=== PATIENT | male | born 1945 | race Caucasian/White ===

== ENCOUNTER → 2021-04-09 | Outpatient (CLI) | payer MEDICARE | LOC: COL.RAD 09:45 | DX: Z13.6 Encounter for screening for cardiovascular disorders (principal); Z82.49 Family history of ischemic heart disease and other diseases of the circulatory system ==

== ENCOUNTER 2021-06-25 09:24 | Day surgery (SDC) | payer MEDICARE ==
[~2021-06-25] VITALS: Ht 170.2 cm; Wt 88.8 kg
[2021-06-25 11:15] VITALS: BP 92/69; PULSE 97; TEMP 98.6
[2021-06-25] MEDS ORDERED: VITAMIN D3400 I1 PO (12:33)
[2021-06-25] MEDS ORDERED: VITAMIN D 400400 IU PO (12:33)
[2021-06-25] MEDS ORDERED: NATURE'S BLEND600 M2 PO (12:34)
[2021-06-25] MEDS ORDERED: FLOMAX 0.40.4 MG/CAP PO (12:34)
[2021-06-25] MEDS ORDERED: CHROMIUM PICOLI1 TA8 PO (12:41)
[2021-06-25] MEDS ORDERED: CINNAMON BARK PO (12:41)
[2021-06-25] MEDS ORDERED: FERROUS SU325 MG/TAB PO (12:42)
[2021-06-25] MEDS ORDERED: TYLENOL 8 HR PO (12:43)
[2021-06-25] MEDS ORDERED: VALTREX1 GM PO (12:44)
[2021-06-25] MEDS ORDERED: MAGNESIUM CITR100 MG PO (12:44)
[2021-06-25] MEDS ORDERED: ASPIRIN 81M81 MG/TA2 PO (12:44)
[2021-06-25] MEDS ORDERED: PRINIVIL20 MG PO (12:45)
[2021-06-25] MEDS ORDERED: LIPITOR20 MG PO (12:45)
[2021-06-25] MEDS ORDERED: SYNTHROID0.175 MG PO (12:46)
[2021-06-25] MEDS ORDERED: ACTOS 15MG TAB15 MG PO (12:47)
[2021-06-25] MEDS ORDERED: GLUCOTROL10 MG PO (12:47)
[2021-06-25] MEDS ORDERED: GLUCOPHAGE XR750 MG PO (12:47)
[2021-06-25 12:50] VITALS: BP 90/62; PULSE 92; TEMP 97.7
[2021-06-25 13:00] VITALS: BP 103/71; PULSE 96
[2021-06-25 13:15] VITALS: BP 88/56; PULSE 83
--- NOTE | 2021-06-25 14:36 | NUR ---
1250 Pt returns from endo procedure via cart and RN assist to [facility] 5. Pt ambulates from cart to recliner with RN assist. Monitors on and alarms set. Call light within reach. Report received from KASSANDRA White. Pt alert and oriented. Pt requests muffin and water. Pt denies any pain or nausea. 1300 Pt taking food and drink well. No complications noted or voiced by pt. 1340 Discharge instructions given to pt. All questions answered to his satisfaction. Handed to pt are a thank you card and discharge information. 1414 Pt transferred down to the waiting area outside the Pt Entrance to wait for his ride. This RN remains with pt. 1436 Pt's ride arrives. Pt transferred out of hospital with this RN assist to waiting vehicle driven by friend.
== END 2021-06-25 14:36 | disposition home or self-care (01) ==
LOC: SDCO 09:24
DX: K29.60 Other gastritis without bleeding (principal); D12.3 Benign neoplasm of transverse colon; K63.5 Polyp of colon; D12.2 Benign neoplasm of ascending colon; D46.9 Myelodysplastic syndrome, unspecified; K31.89 Other diseases of stomach and duodenum; K31.819 Angiodysplasia of stomach and duodenum without bleeding; R19.5 Other fecal abnormalities; K57.30 Diverticulosis of large intestine without perforation or abscess without bleeding; K64.0 First degree hemorrhoids; D63.1 Anemia in chronic kidney disease; M19.90 Unspecified osteoarthritis, unspecified site; G89.29 Other chronic pain; I12.9 Hypertensive chronic kidney disease with stage 1 through stage 4 chronic kidney disease, or unspecified chronic kidney disease; E11.22 Type 2 diabetes mellitus with diabetic chronic kidney disease; E03.9 Hypothyroidism, unspecified; N18.9 Chronic kidney disease, unspecified; E78.5 Hyperlipidemia, unspecified; E55.9 Vitamin D deficiency, unspecified; Z79.82 Long term (current) use of aspirin; Z79.899 Other long term (current) drug therapy; Z79.84 Long term (current) use of oral hypoglycemic drugs; Z79.890 Hormone replacement therapy; Z87.891 Personal history of nicotine dependence; Z90.89 Acquired absence of other organs
CPT/HCPCS: J2704; J7030

== ENCOUNTER 2023-05-19 11:03 | Inpatient (IN) | payer MEDICARE ==
[2023-05-19] VITALS (9 sets, daily range): BP systolic 69–156; BP diastolic 69–88; PULSE 74–102; TEMP 97–98.1
[~2023-05-19] VITALS: Ht 170.2 cm; Wt 88.1 kg
[~2023-05-19 11:03] MED LIST: ACTOS 15MG TAB15 MG PO; ASPIRIN 81M81 MG/TA2 PO; CHROMIUM PICOLI1 TA8 PO; CINNAMON BARK PO; CRESTOR20 MG PO; FLOMAX 0.40.4 MG/CAP PO; GLUCOPHAGE XR750 MG PO; GLUCOTROL10 MG PO; MAGNESIUM CITR100 MG PO; NATURAL IRON65 MG PO; NATURE'S BLEND600 M2 PO; PRINIVIL20 MG PO; SYNTHROID0.175 MG PO; TYLENOL 8 HR PO; VALTREX1 GM PO; VITAMIN D3400 I1 PO; VITAMIND3 5000 PO
[2023-05-19 11:55] LABS: BASO # 0.1 K/mm3 (0.0-0.2); BASO % 0.8 % (0.0-2.0); EOS # 0.3 K/mm3 (0.0-0.7); EOS % 3.4 % (0.0-4.0); GRAN # 5.9 K/mm3 (1.4-6.5); GRAN % 74.2 % (42.2-75.2); HEMATOCRIT 38.8 % (42.0-52.0); HEMOGLOBIN 12.8 g/dl (13.5-18.0); LYMPH # 1.1 K/mm3 (1.2-3.4); LYMPH % 14.1 % (20.0-51.0); MEAN CELL VOLUME 89 fl (80.0-100.0); MEAN CORPUSCULAR HEMOGLOBIN 29 pg (27-31); MEAN CORPUSCULAR HGB CONC 33 g/dl (33.0-37.0); MEAN PLATELET VOLUME 9.2 fl (7.4-10.4); MONO # 0.5 K/mm3 (0.1-0.6); MONO % 6.2 % (1.7-9.3); PLATELET COUNT 230 K/mm3 (130-400); RED BLOOD COUNT 4.35 M/mm3 (4.20-5.60); REDCELL DISTRIBUTION WIDTH-CV 16.4 % (11.5-14.5)
[2023-05-19 12:09] LABS: ALBUMIN 3.9 gm/dL (3.4-4.8); BILIRUBIN,TOTAL 0.6 mg/dL (0.2-1.2); CALCIUM 9.1 mg/dL (8.4-10.2); CREATININE, serum 1.86 mg/dL (0.72-1.25); POTASSIUM 3.9 mmol/L (3.5-4.5); TOTAL PROTEIN 7.1 gm/dL (6.2-8.1)
[2023-05-19 12:20] LABS: TROPONIN-I 0.04 ng/mL (0.00-0.033)
[2023-05-19 12:33] LABS: COLLECTION METHOD CLEAN CATCH
[2023-05-19 13:04] LABS: PH 6.5 (5.0-8.5); URINE APPEARANCE Clear (CLEAR/HAZY); URINE BLOOD Negative (NEGATIVE); URINE COLOR Yellow (YELLOW); URINE GLUCOSE 3+ (NEGATIVE); URINE KETONE Negative (NEGATIVE); URINE NITRATE Negative (NEGATIVE); URINE PROTEIN(semi-quant) Negative (NEGATIVE); URINE UROBILINOGEN 0.2 E.U/dL (0.2-1.0)
[2023-05-19 13:05] LABS: SQUAMOUS EPITHELIAL 0-2 /hpf (0-10); URINE BACTERIA Rare /hpf (NONE SEEN); URINE RBC None Seen /hpf (0-2)
[2023-05-19] MEDS ORDERED: MOBIC 7.5MG7.5 MG PO (13:15)
[2023-05-19] MEDS ORDERED: PRINIVIL10 MG PO (13:16)
[2023-05-19] MEDS ORDERED: XALATAN EYE DROPS OU (13:16)
[2023-05-19] MEDS ORDERED: JARDIANCE10 PO (13:17)
[2023-05-19] MEDS ORDERED: OZEMPIC1 MG/0.71 SQ (13:17)
[2023-05-19 13:19] LABS: INR 1.1 (0.8-3.0); PROTHROMBIN TIME 11.8 SECONDS (9.7-12.8)
[2023-05-19] MEDS ORDERED: KERENDIA20 MG PO (13:19)
[2023-05-19 13:22] LABS: PARTIAL THROMBOPLASTIN TIME 30.4 SECONDS (26.0-37.0)
[2023-05-19] MEDS ORDERED: ALPHA LIPOIC A600 M1 PO (13:35)
[2023-05-19] MEDS ORDERED: FOLIC ACID 11 MG/TA1 PO (13:35)
[2023-05-19] MEDS ORDERED: TIMOPTIC 0.5%-10 OD (13:40)
[2023-05-19] MEDS ORDERED: ALPHAGAN OPHTH D5 ML OD (13:40)
--- NOTE | 2023-05-19 14:40 | NUR ---
PATIENT ARRIVED VIA STRETCHER FROM ER. REPORT RECIEVED FROM COLIN CANNON AT 1345. PATIENT ASSISTED TO BED WITH STAND BY ASSIST. PATIENT GAIT STEADY. TELEMETRY INTACT. HEPARIN INFUSING INTO LEFT AC WITH NO COMPLICATIONS NOTED. ASSESSMENT AND INITAL INTERVIEW COMPLETED. PATIENT REQUESTED ICE, WATER, AND URINAL. ALL GIVEN. PATIENT DENIES ANY OTHER NEEDS AT THIS TIME. BED IN LOW POSITION WITH WHEELS LOCKED WITH RAILS UP X2 AND CALL LIGHT WITHIN REACH.
--- NOTE | 2023-05-19 15:51 | NUR ---
PROVIDER CALLED FOR HIGH CRITICAL TROPONIN OF 0.531. NO NEW ORDERS RECIEVED AT THIS TIME. CLARIFIED ORDER FOR TOPORL XL. PROVIDER STATED TO GIVE MEDICATION.
--- NOTE | 2023-05-19 18:25 | NUR ---
HOSPITALIST POOL MEZA NOTIFIED OF HIGH CRITICAL TROPONIN OF 1.759. HOSPITALIST REQUESTED THAT MINE UTILITY OPERATOR BE NOTIFIED. NO OTHER NEW ORDERS RECIEVED.
--- NOTE | 2023-05-19 18:28 | NUR ---
DR. VILLEGAS NOTIFIED OF HIGH CRITICAL TROPONIN OF 1.759. ORDER RECIEVED TO DO TROPONIN IN AM.
--- NOTE | 2023-05-19 18:54 | NUR ---
PATIENT RESTING IN BED WATCHING TV AT THIS TIME. PATIENT DENIES ANY CHEST PAIN AT THIS TIME. PLAVIX GIVEN PER CARDIOLOGY ORDER. TELEMETRY SHOWING SR WITH ELEVATED T WAVE. TROPONINS TRENDING UPWARD. ECHO COMPLETED. POSSIBLE HEART CATH IN AM. HEPARIN INFUSING INTO LEFT AC AT 10ML/HR AND NS INFUSING AT Y SIDE AT A RATE OF 75 ML/HR WITH NO COMPLICATIONS NOTED. NEXT HEPARIN XA SCHEDULED FOR 1911. PATIENT TOLERATED DINNER. PATIENT DENIES ANY NEEDS AT THIS TIME. BED IN LOW POSITION WITH WHEELS LOCKED WITH RAILS UP X3 AND CALL LIGHT WITHIN REACH.
[2023-05-20] VITALS (17 sets, daily range): BP systolic 59–129; BP diastolic 49–72; PULSE 74–84; TEMP 97.7–98.1
--- NOTE | 2023-05-20 03:34 | NUR ---
patient lying in bed, alert and oriented x4. pt denies chest pain and shortness of breath and reports some dull jaw pain rated 3/10 that has been off and on and "occasionally with chest pain but not currently".pt denies pain interventions at this time. IV in LAC is patent, site is clean dry and intact with heparin drip running at 9ml/hr which was decressed 1ml/hr from 10 ml/h per hepxa protocol and NS running at 75. pt has no further needs, questions, or concerns. NPO status reveiewed, pt verbally understood. call light within reach. will continue to monitor.
[2023-05-20 04:17] LABS: HEMATOCRIT 37.1 % (42.0-52.0); HEMOGLOBIN 12.1 g/dl (13.5-18.0); MEAN CELL VOLUME 89 fl (80.0-100.0); MEAN CORPUSCULAR HEMOGLOBIN 29 pg (27-31); MEAN CORPUSCULAR HGB CONC 33 g/dl (33.0-37.0); MEAN PLATELET VOLUME 8.9 fl (7.4-10.4); PLATELET COUNT 213 K/mm3 (130-400); RED BLOOD COUNT 4.17 M/mm3 (4.20-5.60); REDCELL DISTRIBUTION WIDTH-CV 16.6 % (11.5-14.5)
[2023-05-20 04:38] LABS: CHOLESTEROL RISK RATIO 3.3; CREATININE, serum 1.4 mg/dL (0.72-1.25); POTASSIUM 4.1 mmol/L (3.5-4.5)
[2023-05-20 05:03] LABS: TROPONIN-I 2.284 ng/mL (0.00-0.033)
--- NOTE | 2023-05-20 05:24 | NUR ---
BELIA ST NOTIFIED OF CRITICAL TROPONIN 2.284. WILL CONTINUE TO MONITOR
--- NOTE | 2023-05-20 07:35 | NUR ---
PATIENT RESTING ON COUCH INFRONT OF WINDOWN WITH TV OFF AT THIS TIME. PATIENT VERBALIZIED DISATISFACTION WITH NO BREAKFAST, NO COMMUNICATION ABOUT PLAN OF CARE, IV BEEPING ALL NIGHT, AND UNABLE TO SLEEP. PATIENT STATED " I REFUSE TO HAVE MY BLOOD DRAWN UNTILL I EITHER GET FOOD OR TALK TO THE DOCTOR!" ASSESSMENT COMPLETED. PATIENT TOLERATED WELL. PATIENT DENIES ANY NEEDS OTHER THAN BEING HUNGRY AT THIS TIME. BED IN LOW POSITION WITH WHEELS LOCKED.
--- NOTE | 2023-05-20 07:41 | NUR ---
PATIENT C/O HEADACHE. PATIENT STATED "I HAVE NOT HAD A HEADACHE IN 20 YEARS." PATIENT VERBALIZED UNDERSTANDING THAT MD WOULD BE NOTIFIED. ORDER RECIEVED FOR STAT CT OF HEAD. 0807- PATIENT DOWN TO CT VIA WHEELCHAIR FOR ST OF HEAD AT THIS TIME.
--- NOTE | 2023-05-20 07:50 | NUR ---
PATIENT RESTING IN BED WITH TV OFF WITH FAMILY AT BEDSIDE WITH NO ACUTE DISTRESS NOTED. PATIENT ON 2 LITERS OF OXYGEN VIA NC. PORT TO LEFT UPPER CHEST ACCESSED. ASSESSMENT COMPLETED. PATIENT TOLERATED WELL. ALL NEEDS MET. BED IN LOW POSITION WTIH WHEELS LOCKED WITH RAILS UP X2 AND CALL LIGHT WITHIN REACH.
--- NOTE | 2023-05-20 09:30 | NUR ---
DR. COTE IN TO SEE PATIENT AT THIS TIME. CONSENT FOR THORACENTSIS SIGNED.
--- NOTE | 2023-05-20 09:52 | NUR ---
PATIENT TRANSPORTED TO REACTOR FUELING SUPERVISOR VIA BED AT THIS TIME. LR GIVEN TO CATH RN WITH TUBING.
[2023-05-20 10:19] LABS: HEMATOCRIT 38.1 % (42.0-52.0); HEMOGLOBIN 12.4 g/dl (13.5-18.0); MEAN CELL VOLUME 89 fl (80.0-100.0); MEAN CORPUSCULAR HEMOGLOBIN 29 pg (27-31); MEAN CORPUSCULAR HGB CONC 33 g/dl (33.0-37.0); PLATELET COUNT 213 K/mm3 (130-400); RED BLOOD COUNT 4.27 M/mm3 (4.20-5.60); REDCELL DISTRIBUTION WIDTH-CV 16.8 % (11.5-14.5)
--- NOTE | 2023-05-20 10:22 | NUR ---
Refer to [facility] [employer] Report for procedural sedation/notes
[2023-05-20 10:33] LABS: INR 1.1 (0.8-3.0); PROTHROMBIN TIME 12.2 SECONDS (9.7-12.8)
[2023-05-20 10:39] LABS: CALCIUM 8.8 mg/dL (8.4-10.2); CREATININE, serum 1.53 mg/dL (0.72-1.25); POTASSIUM 4.3 mmol/L (3.5-4.5)
--- NOTE | 2023-05-20 11:45 | NUR ---
PATIENT ARRIVED BACK TO ROOM FROM MEDICAL TECHNOLOGIST CHIEF. REPORT RECIEVED. TR BAND INTACT TO RIGHT WRIST WITH 11ML OF AIR. NO BLEEDING, BRUSING, OR HEMATOMA NOTED. TR BAND APPLIED AT 1111 PER RN. PATIENT AGITATED DUE TO NEED FOR TRANSFER TO ANOTHER FACILITY FOR CONTINUED CARE. VITAL SIGNS TAKEN. HEPARIN INFUSION CONTINUE INTO LEFT AC AT 9 ML/HR. PATIENT ALERT AND ORIENTED. RESPIRATIONS EVEN AND UNLABORED WITH NO ACUTE DISTRESS NOTED. PATIENT ON ROOM AIR. ALL NEEDS MET. BED IN LOW POSITION WITH WHEELS LOCKED WITH RAILS UP X3 AND CALL LIGHT WITHIN REACH.
--- NOTE | 2023-05-20 11:46 | NUR ---
PATIENT ARRIVED BACK TO ROOM #315 VIA BED FROM HIGHWAY MAINTENANCE SUPERVISOR. REPORT RECIEVED AT BEDSIDE. TR BAND INTACT TO RIGHT WRIST WITH 11ML OF AIR. VITAL SIGNS TAKEN. NO ACUTE DISTRESS NOTED. PATIENT AWARE OF NEED TO TRANSFER TO ANOTHER FACILITY FOR TREATMENT. PATIENT DENIES ANY NEEDS AT THIS TIME. BED IN LOW POSITION WITH WHEELS LOCKED WITH RAILS UP X3 AND CALL LIGHT WITHIN REACH.
--- NOTE | 2023-05-20 16:00 | NUR ---
PULLED OFF 3ML OF AIR OF 11ML RRADIAL BAND. PATIENT IS RESTING IN BED. NO BLEEDING NOTED.
--- NOTE | 2023-05-20 17:00 | NUR ---
PULLED OFF 3L OF AIR FROM RIGHT RADIAL ARM BAND. NO BLEEDING NOTED. 5ML CURRENTLY IN RRADIAL BAND. PATIENT IS SITTING UP BEDRAILS X3 WITH CALLIGHT WITHIN REACH.
--- NOTE | 2023-05-20 18:33 | NUR ---
PULLED THE REMAINING 3ML OFF THE R-RADIAL COMPRESSION BAND. NO BLEEDING NOTED. APPLIED A PRESSURE DRESSING TO THE RIGHT WRIST. TONO AND OCCLUSIVE DRESSING WITH KOBAN WRAPPED AROUND.
--- NOTE | 2023-05-20 18:57 | NUR ---
PATIENT RESTING IN BED WITH TV ON. HEPARIN INFUSING INTO LEFT AC AT A RATE OF 9ML/HR. TR BAND REMOVED. NO BLEEDING NOTED. PATIENT PENDING TRANSFER FOR ANOTHER HEART CATH. PATIENT DENIES ANY NEEDS AT THIS TIME. BED IN LOW POSITION WITH WHEELS LOCKED WITH RAILS UP X3 AND CALL LIGHT WITHIN REACH.
--- NOTE | 2023-05-20 23:56 | NUR ---
patient lying in bed alert and oriented x4. pt denies chest pain and shortness of breath. IV in LAC is patent, site is clean dry and intact with heparin drip running at 9ml/hr and 1/2 NS at 100 ml/hr. 2234- BELIA Shah notified to clarify order fluids, 1/2 NS discontinued and LR started running at 60 ml/hr. LR and heparin are compatible to y-site via reference. Right radial dressing is clean dry and intact, generalized bruising on extremities noted. pt has no further needs, questions, or concerns. call light within reach. will continue to monitor.
[2023-05-21 03:24] VITALS: BP 112/57; PULSE 78
[2023-05-21 03:38] LABS: HEMOGLOBIN 11.1 g/dl (13.5-18.0); MEAN CELL VOLUME 90 fl (80.0-100.0); MEAN CORPUSCULAR HEMOGLOBIN 29 pg (27-31); MEAN CORPUSCULAR HGB CONC 32 g/dl (33.0-37.0); MEAN PLATELET VOLUME 9.2 fl (7.4-10.4); PLATELET COUNT 204 K/mm3 (130-400); RED BLOOD COUNT 3.87 M/mm3 (4.20-5.60); REDCELL DISTRIBUTION WIDTH-CV 16.8 % (11.5-14.5)
[2023-05-21 03:39] LABS: HEMATOCRIT 34.7 % (42.0-52.0)
[2023-05-21 03:54] LABS: CALCIUM 9.1 mg/dL (8.4-10.2); CREATININE, serum 1.42 mg/dL (0.72-1.25); POTASSIUM 4.1 mmol/L (3.5-4.5)
[2023-05-21 04:23] VITALS: BP_SYST 112
[2023-05-21 07:25] VITALS: BP 127/60; PULSE 86; TEMP 97.6
--- NOTE | 2023-05-21 08:16 | NUR ---
PATIENT RESTING IN THE APPEARANCE OF SLEEP WITH LIGHTS OFF AND TV OFF WITH NO ACUTE DISTRESS NOTED. PATIENT EASILY AROUSED. PATIENT ON ROOM AIR. ASSESSMENT AND VITAL SIGNS COMPLETED AT THIS TIME. PATIENT TOLERATED WELL. PATIENT DENIES ANY NEEDS AT THIS TIME. PATIENT INQUIRED ABOUT TIME OF TRANSFER AND VERBALZIED UNDERSTANDING THAT HE WOULD BE NOTIFIED SOON THE PRIMARY NURSE WAS NOTIFIED. BED IN LOW POSITION WITH WHEELS LOCKED WITH RAILS UP X3 AND CALL LIGHT WITHIN REACH.
--- NOTE | 2023-05-21 08:56 | NUR ---
PATIENT SITTING UP ON EDGE OF BED AT THIS TIME WITH NO ACUTE DISTRESS NOTED. PATIENT ON ROOM AIR. PATIENT COMPLETED BREAKFAST TRAY 100%. MEDICATION ADMINISTRATION COMPLETED AT THIS TIME. PATIENT TOLERATED WELL. PATIENT DENIES ANY NEEDS. BED IN LOW POSITION WITH WHEELS LOCKED WITH RAILS UP X2 AND CALL LIGHT WITHIN REACH.
[2023-05-21 08:57] VITALS: BP_SYST 127
[2023-05-21] MEDS ORDERED: PLAVIX 75MG TAB75 MG PO (09:33)
[2023-05-21] MEDS ORDERED: TOPROL XL 25MG25 MG PO (09:34)
[2023-05-21] MEDS ORDERED: IMDUR 30MG30 MG/TAB PO (09:34)
--- NOTE | 2023-05-21 09:58 | NUR ---
PATIENT SITTING ON EDGE OF BED WITH ABA TUTOR IN ROOM AT THIS TIME. PATIENT TELEMETRY TAKEN OFF DUE TO PATIENT BEING DISCHARGED. PATIENT VOICED UNDERSTANDING OF HOW TO TAKE TELEMETRY PADS OFF WITHOUT CAUSING A SKIN TEAR. ALL NEEDS MET. HEPARIN INFUSION AND LR INFUSION DISCONTINUED AT THIS TIME. BED IN LOW POSITION WITH WHEELS LOCKED WITH RAILS UP X3 AND CALL LIGHT WITHIN REACH.
--- NOTE | 2023-05-21 10:55 | NUR ---
PATIENT RESTING IN BED AT THIS TIME. IV REMOVED FROM LEFT AC WITH CATHETER INTACT. DRESSING APPLIED. DISCHARGE INSTRUCTIONS GIVEN. PATIENT VERBALIZED UNDERSTANDING. PATIENT TAKEN TO ER INTRANCE FOR URBER HOME VIA WHEELCHAIR. PATIENT CONDITION STABLE.
--- NOTE | 2023-05-21 12:58 | NUR ---
Structural Steel Trades Worker met with patient to discuss discharge planning. Hospitalist rounded for patient and he will be discharged home today. Patient lives alone in [place] and sees Dr. Moura for primary care. Patient obtains medications from [facility] but is considering changing to a different pharmacy as [facility] is not open on the weekends. Patient has a cane that he only uses as needed. Patient also has a blood pressure cuff and glucometer at home. Patient is independent with ADLS and drives himself to medical appointments. Patient did request assistance with a ride home as his car is not here and he has no one that can get it. SW arranged an Uber ride for patient. SW discussed DPOA-HC with patient and he would like to complete the form. SW assisted patient with form and he chose to designate his son Alber (ph#[phone]). Patient did not want to designate an alternate at this time. Discharge Plan: Home
== END 2023-05-21 10:55 | disposition home or self-care (01) | DRG 281 ==
LOC: COL.ER 11:03 → MEDICAL 12:34
PROVIDERS: Emergency Medicine; ADMIT Internal Medicine
PROC: 4A023N7 Measurement of Cardiac Sampling and Pressure, Left Heart, Percutaneous Approach (ICD-10-PCS; principal; 2023-05-20)
PROC: B2111ZZ Fluoroscopy of Multiple Coronary Arteries using Low Osmolar Contrast (ICD-10-PCS; 2023-05-20)
DX: I21.4 Non-ST elevation (NSTEMI) myocardial infarction (principal); E87.20 Acidosis, unspecified; N17.9 Acute kidney failure, unspecified; Z66 Do not resuscitate; Z96.611 Presence of right artificial shoulder joint; I12.9 Hypertensive chronic kidney disease with stage 1 through stage 4 chronic kidney disease, or unspecified chronic kidney disease; E11.22 Type 2 diabetes mellitus with diabetic chronic kidney disease; N18.30 Chronic kidney disease, stage 3 unspecified; I20.89 Other forms of angina pectoris; E66.9 Obesity, unspecified; N40.0 Benign prostatic hyperplasia without lower urinary tract symptoms; E78.5 Hyperlipidemia, unspecified; E89.0 Postprocedural hypothyroidism; H54.61 Unqualified visual loss, right eye, normal vision left eye; Z90.49 Acquired absence of other specified parts of digestive tract; Z90.89 Acquired absence of other organs; Z87.891 Personal history of nicotine dependence; Z79.82 Long term (current) use of aspirin; Z79.899 Other long term (current) drug therapy; Z79.84 Long term (current) use of oral hypoglycemic drugs; Z79.890 Hormone replacement therapy; Z23 Encounter for immunization; Z68.30 Body mass index [BMI] 30.0-30.9, adult
CPT/HCPCS: C1769; J1644; J2250; J3010; J7030; J7120; Q9967

== ENCOUNTER → 2023-07-21 | Outpatient (RCR) | payer MEDICARE ==
[~2023-07-21] MED LIST changes: +ALPHA LIPOIC A600 M1 PO; +ALPHAGAN OPHTH D5 ML OD; +FOLIC ACID 11 MG/TA1 PO; +IMDUR 30MG30 MG/TAB PO; +JARDIANCE10 PO; +KERENDIA20 MG PO; +MOBIC 7.5MG7.5 MG PO; +OZEMPIC1 MG/0.71 SQ; +PLAVIX 75MG TAB75 MG PO; +PRINIVIL10 MG PO; +TIMOPTIC 0.5%-10 OD; +TOPROL XL 25MG25 MG PO; +XALATAN EYE DROPS OU
== END | disposition home or self-care (01) ==
LOC: COL.CR
DX: Z48.812 Encounter for surgical aftercare following surgery on the circulatory system (principal); Z95.5 Presence of coronary angioplasty implant and graft

== ENCOUNTER 2023-08-18 15:41 | Outpatient (RCR) | payer MEDICARE | END 2023-08-19 | disposition home or self-care (01) | LOC: COL.CR | DX: Z48.812 Encounter for surgical aftercare following surgery on the circulatory system (principal); Z95.5 Presence of coronary angioplasty implant and graft ==

== ENCOUNTER 2023-10-01 12:11 | Outpatient (RCR) | payer MEDICARE | END 2023-10-19 | disposition home or self-care (01) | LOC: COL.CR | DX: Z48.812 Encounter for surgical aftercare following surgery on the circulatory system (principal); Z95.5 Presence of coronary angioplasty implant and graft ==